=== PATIENT | male | born 1965 | race Caucasian/White ===

== ENCOUNTER 2019-11-13 18:12 | Emergency (ER) | payer OTHER, SELFPAY ==
[2019-11-13 18:31] VITALS: BP 140/84; PULSE 71; RESP 16; TEMP 36.7; O2SAT 99; BMI 24.4
[2019-11-13 18:43] VITALS: BP 142/94; PULSE 69; O2SAT 100
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
== END 2019-11-13 20:41 | disposition home or self-care (01) ==
PROVIDERS: Emergency Provider Emergency Medicine; Family Provider Family Medicine; PCP Family Medicine
DX: S20.211A Contusion of right front wall of thorax, initial encounter (principal); R07.89 Other chest pain; R06.00 Dyspnea, unspecified; V19.3XXA Pedal cyclist (driver) (passenger) injured in unspecified nontraffic accident, initial encounter
CPT/HCPCS: 36415; 71101; 99283; 99284

== ENCOUNTER → 2020-02-12 07:04 | Outpatient (CLI) | payer OTHER, SELFPAY ==
[2020-02-12 07:42] LABS: Add Manual Diff / Slide Review NO; Basophils Absolute Auto 0 /uL (0-100); Basophils Percent Auto 0.5 % (0-2); Eosinophils Absolute Auto 300 /uL (0-450); Eosinophils Percent Auto 5.4 % (2-4); Hematocrit 43.4 % (41-53); Hemoglobin 14.5 g/dL (13.5-17.5); Lymphocytes Absolute Auto 1500 /uL (1100-4500); Lymphocytes Percent Auto 31.2 % (25-40); Mean Corpuscular HGB Conc 33.3 % (30-36); Mean Corpuscular Hemoglobin 29.5 PG (26-34); Mean Corpuscular Volume 88.4 fL (80-100); Monocytes Absolute Auto 400 /uL (0-900); Monocytes Percent Auto 8.7 % (3-14); Neutrophils Absolute Auto 2600 /uL (1500-7000); Neutrophils Percent Auto 54.2 % (50-75); Platelet Count 209 X10^3/uL (150-400); Red Blood Cell Count 4.91 X10^6/uL (4.5-5.9); Red Cell Distribution Width 12.9 % (11.6-14.8); White Blood Cell Count 4.9 X10^3/uL (4.5-11.0)
[2020-02-12 08:06] LABS: Alanine Aminotransferase 22 IU/L (<50); Albumin 4.2 g/dL (3.5-5.0); Albumin Globulin Ratio 1.5 (1.0-2.8); Alkaline Phosphatase 46 U/L (38-126); Aspartate Aminotransferase 30 IU/L (17-59); BUN Creatinine Ratio 22.8 (6-22); Bilirubin Total 0.9 mg/dL (0.2-1.3); Blood Urea Nitrogen 21 mg/dL (9-20); Calcium 9.7 mg/dL (8.4-10.2); Carbon Dioxide 31 mmol/L (22-32); Chloride 103 mmol/L (98-107); Cholesterol 187 mg/dL (140-199); Estimated Glomerular Filt Rate > 60.0 mL/min (>60); Globulin 2.8 g/dL (1.7-4.1); Glucose 82 mg/dL (70-100); HDL Cholesterol 48 mg/dL (40-60); HEMOLYSIS 20 (0-50); LDL Cholesterol Calculated 123 mg/dL (<100); Potassium 4.6 mmol/L (3.4-5.1); Sodium 140 mmol/L (137-145); Triglycerides 81 mg/dL (35-150)
[2020-02-12 08:32] LABS: Prostate Specific Antigen Scrn 0.665 ng/mL (0.1-4.0)
== END ==
PROVIDERS: Family Provider Family Medicine; PCP Family Medicine; Referring Provider Family Medicine; Visit Provider Family Medicine
DX: Z00.00 Encounter for general adult medical examination without abnormal findings (principal); Z12.5 Encounter for screening for malignant neoplasm of prostate; Z13.220 Encounter for screening for lipoid disorders; Z13.6 Encounter for screening for cardiovascular disorders
CPT/HCPCS: 36415; 80053; 80061; 85025; G0103

== ENCOUNTER → 2020-07-05 09:03 | Outpatient (CLI) | payer OTHER, SELFPAY ==
[2020-07-05 10:01] LABS: COVID19 -Nasal RAPID Negative (Negative)
== END ==
PROVIDERS: Family Provider Family Medicine; PCP Family Medicine; Visit Provider Surgery
DX: Z20.822 Contact with and (suspected) exposure to COVID-19 (principal)
CPT/HCPCS: 87635; C9803

== ENCOUNTER 2020-07-08 08:56 | Day surgery (SDC) | payer OTHER, SELFPAY ==
[2020-07-08 09:33] VITALS: BP 131/81; PULSE 62; RESP 13; TEMP 36.2; O2SAT 100; BMI 25.0
[2020-07-08] MEDS: LACTATED RINGERS 1,000 ML 42 ML IV (09:40)
--- NOTE | 2020-07-08 10:18 | PM.HP.1 ---
History of Present Illness History of Present Illness Date Patient Seen: 07/08/20 Time Patient Seen: 10:18 Chief complaint: SCREENING COLONOSCOPY Narrative: The patient presents for colorectal sreening. They have never had any previous examination for such. No personal or family history of colon cancer. On further history denies any recent gastrointestinal symptoms. No nausea, vomiting, abdominal pain, loss of appetite, unexplained weight loss, change in bowel habits, diarrhea, constipation, melena, hematochezia, or bright red blood per rectum. Patient History Medical History Erectile dysfunction Preventative health care Right hip pain Wears glasses Family & Social History Family History Mother Age: 80 Hypertension Grandmother Cancer Hypertension Social History: household members significant other Tobacco & Substance use: Smoking Status Former smoker alcohol intake current alcohol intake frequency a few times a week Substance Use Type does not use Meds Home Medications and Allergies Home Medications Medication Instructions Recorded Confirmed Type epinephrine 0.3 mg/0.3 mL 0.3 mg IM Q5-15M PRN #2 ea 05/21/20 07/08/20 Rx injection, auto-injector sildenafil (pulm.hypertension) 20 mg PO PRN PRN 07/08/20 07/08/20 History Allergies Allergy/AdvReac Type Severity Reaction Status Date / Time tree nut [TREE NUT] Allergy Unknown Verified 05/21/20 16:36 Review of Systems Review of Systems Narrative: A 10 point review of systems is negative except as noted in the HPI Exam Vital Signs (past 8 hours): - 07/08/20 09:33 Temperature 97.2 F L Pulse Rate 62 Respiratory Rate 13 Blood Pressure 131/81 Pulse Oximetry 100 Oxygen Delivery Method Room Air Narrative Exam Narrative: General-no acute distress, well nourished adult man HEENT-moist mucous membranes, no scleral icterus Neck-supple, no lymphadenopathy Chest- non labored respirations, clear to auscultation bilaterally Cardiac-regular rate no peripheral edema Abdomen-soft, nontender, non distended Extremities-warm, well perfused Neurological-alert and oriented, no focal deficits Assessment & Plan Assessment & Plan narrative: The patient requires colorectal screening and colonoscopy is recommended. Technical details were discussed. Risks, benefits, alternatives explained. Risks including but not limited to myocardial infarction, aspiration, bleeding, pain, missed lesion, incomplete examination, need for further radiographic studies, colonic perforation, and need for major abdominal surgery were discussed. All questions were answered to their satisfaction, and they are in agreement with this plan.
[2020-07-08] MEDS: fentaNYL 250 MCG/5 ML INJ IV (10:35)
[2020-07-08] MEDS: MIDAZOLAM 5 MG/5 ML VIAL IV (10:35)
[2020-07-08 10:52] VITALS: BP 113/76; PULSE 64; RESP 12; TEMP 36.4; O2SAT 98
--- NOTE | 2020-07-08 10:52 | PM.OP.ENDO ---
Operative Date/Time/Diagnoses Date of procedure: 07/08/20 Time of procedure: 10:52 Pre-op diagnosis: screening colonoscopy Post-op diagnosis: same Procedure & Clinicians Study performed: Colonoscopy Same procedure as scheduled: Yes Indications: 55-year-old male no prior colonoscopy here for routine screening Surgeon: Arnol Ocasio Procedure Notes Procedure in detail: Medications: Conscious sedation using 6mg IV midazolam and 150mcg IV of fentanyl The history and physical was performed/updated and the patient is ASA class is 1. The procedure was discussed in detail with the patient. Potential risks complications including infection, bleeding, missed diagnosis, perforation, need for surgery, and were explained. Their questions were answered and informed consent was obtained. Patient was brought to the procedure room and placed standard monitoring equipment. The patient's vital signs were monitored continuously throughout the entire procedure. Prior to starting time-out was performed. The patient was placed in the left lateral recumbent position. Procedural sedation was administered. Examination began with a thorough inspection of the perianal area there was no evidence of fissures, fistulae, external hemorrhoids or cutaneous malignancy. The colonoscopy scope was then placed into the anal canal and was advanced to the cecum, which was identified by the ileocecal valve, the appendiceal orifice and the confluence of the taenia. The scope was then slowly withdrawn examining colon thoroughly in all directions, irrigating it of any residual stool. No masses or polyps Sigmoid diverticulosis The patient tolerated the procedure well. They will be discharged once criteria are met. The prep was of good/excellent quality. The withdrawl time was 7 minutes. The sedation time was 22 minutes. Specimen(s): none sent Complications: none Impression: Normal colonoscopy Post-procedure Recommendations: Colonscopy in 10 years
[2020-07-08 10:57] VITALS: BP 114/70; PULSE 62; RESP 9; O2SAT 99
[2020-07-08 11:02] VITALS: BP 123/85; PULSE 59; RESP 12; O2SAT 98
[2020-07-08 11:07] VITALS: BP 112/81; PULSE 57; RESP 9; O2SAT 99
[2020-07-08 11:09] VITALS: BP 121/88; PULSE 67; RESP 9; TEMP 36.6; O2SAT 98
== END 2020-07-08 11:20 | disposition home or self-care (01) ==
PROVIDERS: Family Provider Family Medicine; PCP Family Medicine; Referring Provider Surgery; Visit Provider Surgery
PROC: 0DJD8ZZ Inspection of Lower Intestinal Tract, Via Natural or Artificial Opening Endoscopic (ICD-10-PCS; CPT 45378; principal; 2020-07-08 10:00)
DX: Z12.11 Encounter for screening for malignant neoplasm of colon (principal); K57.30 Diverticulosis of large intestine without perforation or abscess without bleeding
CPT/HCPCS: 45378; 99152; J2250; J3010

== ENCOUNTER → 2021-08-21 12:11 | Outpatient (CLI) | payer OTHER, SELFPAY ==
--- NOTE | 2021-08-21 12:13 | DI.RAD.S_ITS ---
PROCEDURE: XR HIP W PEL IF DONE RT 2V INDICATIONS: right hip pain TECHNIQUE: AP pelvis with lateral view(s) of the right hip(s). COMPARISON: None. FINDINGS: Bones: No fractures or dislocations. Pelvic ring appears intact. No suspicious bony lesions. Moderate bilateral hip degenerative arthritis. Soft tissues: The visualized bowel gas pattern is normal. No suspicious soft tissue calcifications. IMPRESSION: Moderate bilateral hip degenerative arthritis. No evidence acute bony abnormality of the pelvis and right hip. If clinical suspicion and/or symptoms persist, further assessment with repeat plain films, or advanced imaging (e.g., CT, MRI, or bone scan) may be helpful for further assessment. Dictated by: Chandrakant Hennessy M.D. on 08/21/2021 at 16:51 Approved by: Chandrakant Hennessy M.D. on 08/21/2021 at 16:52
== END ==
PROVIDERS: Family Provider Family Medicine; PCP Family Medicine; Referring Provider Family Medicine; Visit Provider Family Medicine
DX: M25.551 Pain in right hip (principal); M16.0 Bilateral primary osteoarthritis of hip
CPT/HCPCS: 73502

== ENCOUNTER → 2021-09-18 07:21 | Outpatient (CLI) | payer OTHER, SELFPAY ==
--- NOTE | 2021-09-18 07:23 | DI.US.S_ITS ---
PROCEDURE: US SCROTUM INDICATIONS: SWOLLEN RIGHT SCROTUM TECHNIQUE: Real-time scanning was performed of the scrotum and testicles, with image documentation. Color and pulse Doppler interrogation was performed of both testicles. COMPARISON: None. FINDINGS: Right: Testicle is normal in size at 5.1 x 3.2 x 3.6 cm. There is an exophytic hyperechoic focus measuring roughly 3 mm at the superior aspect of the right testis. Epididymis is normal in overall size and morphology. Moderate hydrocele. No varicocele.. Overlying scrotal skin is normal in thickness. Left: Testicle is normal in size at 5.0 x 4.3 x 3.2 cm, and homogeneous in echotexture. Epididymis is normal in overall size . There is an 8 mm anechoic focus within the epididymal head, consistent with cyst. No hydrocele or varicoceles. Overlying scrotal skin is normal in thickness. Doppler: Color and pulse Doppler demonstrate normal and symmetric arterial flow in both testicles. IMPRESSION: 1. Right hydrocele. 2. Small hyperechoic exophytic focus adjacent to the superior aspect of the right testis, consistent with benign etiology, possibly post infectious or post inflammatory. Dictated by: Marky Salazar M.D. on 09/18/2021 at 15:54 Approved by: Marky Salazar M.D. on 09/18/2021 at 16:41
== END ==
PROVIDERS: Family Provider Family Medicine; PCP Family Medicine; Referring Provider Family Medicine; Visit Provider Family Medicine
DX: N50.89 Other specified disorders of the male genital organs (principal); N43.3 Hydrocele, unspecified
CPT/HCPCS: 76870

== ENCOUNTER → 2021-10-09 08:01 | Outpatient (CLI) | payer OTHER, SELFPAY ==
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
== END ==
PROVIDERS: Family Provider Family Medicine; PCP Family Medicine; Referring Provider Family Medicine; Visit Provider Family Medicine
DX: S83.512A Sprain of anterior cruciate ligament of left knee, initial encounter (principal); S83.232A Complex tear of medial meniscus, current injury, left knee, initial encounter; S83.282A Other tear of lateral meniscus, current injury, left knee, initial encounter; S83.412A Sprain of medial collateral ligament of left knee, initial encounter; S80.02XA Contusion of left knee, initial encounter; M25.462 Effusion, left knee; M71.22 Synovial cyst of popliteal space [Baker], left knee; M17.12 Unilateral primary osteoarthritis, left knee; X58.XXXA Exposure to other specified factors, initial encounter
CPT/HCPCS: 73721

== ENCOUNTER → 2022-01-27 15:36 | Outpatient (CLI) | payer OTHER, SELFPAY ==
[2022-01-27 19:06] LABS: COVID19 -Nasal RAPID Negative (Negative)
== END ==
PROVIDERS: Family Provider Family Medicine; PCP Family Medicine; Visit Provider Urology
DX: Z20.822 Contact with and (suspected) exposure to COVID-19 (principal)
CPT/HCPCS: 87635; C9803

== ENCOUNTER 2022-01-30 12:30 | Day surgery (SDC) | payer OTHER, SELFPAY ==
[2022-01-28 12:07] VITALS: BMI 24.9
--- NOTE | 2022-01-30 | PATH_ITS ---
[facility] Accession Number: [id number] . 01 Material submitted: . testis - RIGHT HYDROCELE SAC . 01 Diagnosis: Right Hydrocele, Excision: Mesothelial-lined fibrovascular tissue consistent with hydrocele. Negative for neoplasia. [facility] 02/05/2022 1419 Local . 01 Electronically signed: . Carina Infante MD, Pathologist NPI- [id number] . 01 Gross description: . The specimen is received in formalin labeled with the patient's name and right hydrocele sac, and consists of two mcelroy soft tissue fragments aggregating to 6.9 x 5.8 x 0.5 cm. One surface is brown and roughened consistent with cautery artifact. The opposite surface is mcelroy and smooth. Sectioning reveals a mcelroy, slightly gelatinous cut surface. Kiln Packer sections are submitted in cassettes A1-A2. ([id number]) /V 02/03/2022 1311 Local . 01 Pathologist provided ICD-10: N43.3 . 01 CPT . 644828 Performed at: [facility] [address] [place] [address] [id number] MD Baron Maya MD Phone: [phone]
[2022-01-30 12:50] VITALS: BP 133/89; PULSE 56; RESP 16; TEMP 36.4; O2SAT 100; BMI 24.4
--- NOTE | 2022-01-30 13:03 | PM.PREOP ---
Pre-operative Note COVID-19 COVID-19 status: Negative Result date/Date tested (Pos, Neg/Pending): 01/27/22 Criteria for continued procedure: Delay expected to result in less-positive ultimate med/surg outcome and Non-surgical alternatives not available or appropriate per current SOC Interval Note History & Physical reviewed/Exam performed by Physician: Yes Changes to H&P: No
[2022-01-30] MEDS: LACTATED RINGERS 1,000 ML 42 ML IV (13:14)
[2022-01-30] MEDS: CEFAZOLIN 2 GM/100 ML PREMIX 100 ML IV (13:48)
--- NOTE | 2022-01-30 13:51 | SUR.OPER ---
Supine on padded OR bed, head on pillow, arms secured on padded arm boards at <90 degrees abduction, legs uncrossed, safety belt at thigh, tape over blanket over lower legs.
[2022-01-30] MEDS: BUPIVACAINE 0.25% (PF) VIAL 30 ML INJ (14:02)
[2022-01-30 14:50] VITALS: BP 108/67; PULSE 90; RESP 16; TEMP 36.3; O2SAT 98
--- NOTE | 2022-01-30 14:50 | PM.OP.1 ---
Procedure & Clinicians Procedure: Right hydrocelectomy Same procedure as scheduled: Yes Indications: This is a very pleasant 56-year-old male who presented with a large uncomfortable right hydrocele this was confirmed by ultrasound and he presents this time for right hydrocelectomy. Surgeon: Paul Hebert Click Yes if Unassisted: Yes Anesthesia Type: General Operative Notes Findings: Normal anatomy save the hydrocele which had clear yellow fluid in it there were 2 small scrotal pearls and no other abnormalities noted. Closure Type: primary Specimen(s): other (Right hydrocele sac) Estimated Blood Loss (mL): 5 Blood products transfused: none Procedure in detail: Procedure in detail: After informed consent was obtained, the patient was identified and brought to the operating room where he is placed in a supine position on the table. Anesthesia was induced and maintained. And the patient was prepped, draped, prepared for trans scrotal procedure on the right side. After prepping, draping, ensuring an adequate level of anesthesia and time-out with the appropriate side verified by Juan Carlos, a transverse right hemiscrotal incision was made. This was carried down through the layers the dartos and the hydrocele and testicle and was delivered. The sac was opened anteriorly the fluid evacuated by suction. The incision extended in a vertical fashion. The excess sac was excised taking care to avoid the epididymis testes or cord structures. The sac was then forwarded to pathology in formalin for pathologic examination. Attention was then turned to running the edge of the excision with a running locking 2-0 chromic gut suture. Cord was then infiltrated with 0.25% plain Marcaine in the testes returned to the scrotum with hemostasis assured. The wound was irrigated the dartos was reapproximated with a running 2-0 Vicryl. Skin edges infiltrated with 0.25% Marcaine plain and the skin edges reapproximated with interrupted vertical mattress of 2-0 chromic. The wound was dressed with bacitracin Telfa fluffs and scrotal support the patient was awakened and taken the postanesthesia care unit having tolerated the procedure well, there were no complications. Complications: none Post-operative Condition: stable Disposition: PACU Plan for aftercare: Patient is to be discharged home to follow up my office in 10-14 days.
[2022-01-30 14:55] VITALS: BP 125/84; PULSE 88; RESP 16; O2SAT 100
[2022-01-30 15:00] VITALS: BP 125/84; PULSE 89; RESP 12; O2SAT 100
[2022-01-30 15:22] VITALS: BP 125/92; PULSE 72; RESP 16; TEMP 36.8; O2SAT 98
== END 2022-01-30 15:47 | disposition home or self-care (01) ==
PROVIDERS: Family Provider Family Medicine; PCP Family Medicine; Referring Provider Urology; Visit Provider Urology
PROC: (CPT 55040; principal; 2022-01-30 13:30)
DX: N43.3 Hydrocele, unspecified (principal); N52.9 Male erectile dysfunction, unspecified; N50.89 Other specified disorders of the male genital organs
CPT/HCPCS: 55040; 82962; J0690; J1100; J2250; J2405; J2704; J3010

== ENCOUNTER → 2022-02-22 09:38 | Outpatient (CLI) | payer OTHER, SELFPAY ==
--- NOTE | 2022-02-22 09:39 | DI.CT.S_ITS ---
PROCEDURE: CT CHEST WO CON INDICATIONS: F/U Rib fracture, continued pain TECHNIQUE: Noncontrast 5 mm thick sections acquired from the pulmonary apices to the posterior costophrenic angles. 1 mm lung window, 5 mm thick coronal and sagittal and 7 mm axial MIP reformats were then acquired. For radiation dose reduction, the following was used: automated exposure control, adjustment of mA and/or kV according to patient size. COMPARISON: None. FINDINGS: Image quality: Excellent. Lungs and pleura: No acute air space opacities. No pleural effusions or pneumothorax. Central and peripheral airways are patent and normal in caliber. Mediastinum: Heart size is normal. No pericardial effusion. No mediastinal adenopathy by size criteria. Thoracic aorta and central pulmonary arteries are normal in size. Esophagus is normal in caliber. No hiatal hernia. Bones and chest wall: In this patient with this given history, scrutiny is given to the previously seen left-sided rib fractures. The rib fractures each are seen to be healing, with bridging callus. No non fused rib fractures can be seen. No suspicious bony lesions. No vertebral body compression fractures. No axillary or supraclavicular adenopathy by size criteria. Thyroid gland demonstrates no significant noncontrast abnormality. Abdomen: Visualized upper abdominal solid organs and bowel loops appear normal in the absence of contrast. IMPRESSION: Expected healing of left-sided rib fractures can be seen, with bridging callus formation. The previously seen tiny left-sided pneumothorax has resolved. Dictated by: López De Paz M.D. on 02/22/2022 at 9:17 Approved by: López De Paz M.D. on 02/22/2022 at 9:20
== END ==
PROVIDERS: Family Provider Family Medicine; PCP Family Medicine; Referring Provider Family Medicine; Visit Provider Family Medicine
DX: S22.42XA Multiple fractures of ribs, left side, initial encounter for closed fracture (principal); R07.81 Pleurodynia; X58.XXXA Exposure to other specified factors, initial encounter
CPT/HCPCS: 71250

== ENCOUNTER → 2024-06-06 16:18 | Outpatient (CLI) | payer OTHER, SELFPAY ==
--- NOTE | 2024-06-06 16:19 | DI.RAD.S_ITS ---
PROCEDURE: XR FOOT RT MIN 3V INDICATIONS: eval bilateral feet TECHNIQUE: 3 views of the foot were acquired. COMPARISON: [facility], CR, XR FOOT LT MIN 3V, 06/06/2024, 16:18. FINDINGS: Bones: No fractures or dislocations. No suspicious bony lesions. Moderate 1st MTP degenerative narrowing with small periarticular osteophytes. Soft tissues: No tibiotalar joint effusion. Achilles tendon appears normal. IMPRESSION: Early degenerative changes most notable at the 1st MTP joint. Dictated by: Sheila Romero M.D. on 06/07/2024 at 21:11 Approved by: Sheila Romero M.D. on 06/07/2024 at 21:13
--- NOTE | 2024-06-06 16:19 | DI.RAD.S_ITS ---
PROCEDURE: XR FOOT LT MIN 3V INDICATIONS: eval bilateral feet TECHNIQUE: 3 views of the foot were acquired. COMPARISON: [facility], CR, XR FOOT RT MIN 3V, 06/06/2024, 16:18. FINDINGS: Bones: No fractures or dislocations. No suspicious bony lesions. [id number] 1st MTP degenerative narrowing. No erosions. No distinct osteophytes. Soft tissues: No tibiotalar joint effusion. Achilles tendon appears normal. IMPRESSION: Early degenerative changes notable at the 1st MTP joint. Dictated by: Sheila Romero M.D. on 06/07/2024 at 21:13 Approved by: Sheila Romero M.D. on 06/07/2024 at 21:13
== END ==
PROVIDERS: Family Provider Family Medicine; PCP Family Medicine; Referring Provider Family Medicine; Visit Provider Family Medicine
DX: M20.10 Hallux valgus (acquired), unspecified foot (principal); M19.072 Primary osteoarthritis, left ankle and foot; M19.071 Primary osteoarthritis, right ankle and foot
CPT/HCPCS: 73630

== ENCOUNTER → 2024-06-12 07:02 | Outpatient (CLI) | payer OTHER, SELFPAY ==
[2024-06-12 07:43] LABS: Add Manual Diff / Slide Review NO; Basophils Absolute Auto 0 /uL (0-100); Basophils Percent Auto 0.6 % (0-2); Eosinophils Absolute Auto 400 /uL (0-450); Hematocrit 45.1 % (41-53); Hemoglobin 15.3 g/dL (13.5-17.5); Lymphocytes Absolute Auto 1300 /uL (1100-4500); Lymphocytes Percent Auto 23.1 % (25-40); Mean Corpuscular Hemoglobin 30.3 PG (26-34); Mean Corpuscular Volume 89.1 fL (80-100); Monocytes Absolute Auto 500 /uL (0-900); Monocytes Percent Auto 8.8 % (3-14); Neutrophils Absolute Auto 3200 /uL (1500-7000); Neutrophils Percent Auto 59.5 % (50-75); Platelet Count 239 X10^3/uL (150-400); Red Blood Cell Count 5.06 X10^6/uL (4.5-5.9); Red Cell Distribution Width 13.7 % (11.6-14.8); White Blood Cell Count 5.4 X10^3/uL (4.5-11.0)
[2024-06-12 08:05] LABS: Alanine Aminotransferase 22 IU/L (<50); Albumin 4.5 g/dL (3.5-5.0); Albumin Globulin Ratio 1.7 (1.0-2.8); Alkaline Phosphatase 55 U/L (38-126); Aspartate Aminotransferase 28 IU/L (17-59); BUN Creatinine Ratio 23.1 (6-22); Bilirubin Total 0.6 mg/dL (0.2-1.3); Blood Urea Nitrogen 27 mg/dL (9-20); Calcium 9.9 mg/dL (8.4-10.2); Carbon Dioxide 29 mmol/L (22-32); Chloride 105 mmol/L (98-107); Cholesterol 225 mg/dL (140-199); Estimated Glomerular Filt Rate > 60 mL/min (>60); Globulin 2.6 g/dL (1.7-4.1); Glucose 94 mg/dL (70-100); HDL Cholesterol 53 mg/dL (40-60); HEMOLYSIS < 15 (0-50); LDL Cholesterol Calculated 158 mg/dL (<100); Potassium 4.6 mmol/L (3.4-5.1); Sodium 140 mmol/L (137-145); Total Protein 7.1 g/dL (6.3-8.2); Triglycerides 71 mg/dL (35-150)
[2024-06-12 08:35] LABS: Prostate Specific Antigen 1.06 ng/mL (0.10-4.00)
== END ==
PROVIDERS: Family Provider Family Medicine; PCP Family Medicine; Referring Provider Family Medicine; Visit Provider Family Medicine
DX: Z00.00 Encounter for general adult medical examination without abnormal findings (principal); E78.2 Mixed hyperlipidemia
CPT/HCPCS: 36415; 80053; 80061; 84153; 85025

== ENCOUNTER → 2024-08-08 06:51 | Outpatient (CLI) | payer OTHER, SELFPAY ==
--- NOTE | 2019-08-09 07:16 | DI.ECHO.S_ITS ---
:Name: YAYO VELASCO Study Date: 08/08/2024 Height: 73 in : :[facility] ReadingLocation: Weight: 185 lb : : Gender: Male BSA: 2.1 m2 : :: 1965 Age: 59 yrs BP: 132/86 mmHg: :Reason For Study: EVALUATE BORDERLINE WIDE ASCENDING AORTA : :Ordering Physician: SHAHLA, : :NADEEM Murdock Performed By: Jamee Mejia : :Referring: NADEEM GALE D.O. : + + Interpretation Summary The left ventricle is normal in size and wall thickness. The left ventricular ejection fraction is normal. The ejection fraction is estimated to be 60-65%. The right ventricle is at the upper limits of normal in size. The right ventricular systolic function is normal. There is borderline mitral valve prolapse. There is prolapse of the posterior mitral valve leaflet(s). There is mild mitral regurgitation. The ascending aorta is at the upper limits of normal in size 3.8 cm in diameter with.BSA: 2.1 m2. The IVC is of normal diameter and collapses greater than 50% with a sniff. This suggests a low right atrial pressure of 3 mm Hg. Procedure: A two-dimensional transthoracic echocardiogram with color flow and Doppler was performed. The study quality was technically adequate. There is no prior echocardiogram noted for this patient. The patient was in sinus rhythm with heart rates between 62-82 bpm during the exam. Left Ventricle: The left ventricle is normal in size and wall thickness. There is no thrombus. A false chord is noted (normal variant). The ejection fraction is estimated to be 60-65%. The left ventricular ejection fraction is normal. There are no focal wall motion abnormalities. Diastolic parameters suggest probable normal left ventricular diastolic function and normal filling pressures. Right Ventricle: The right ventricle is at the upper limits of normal in size. The right ventricular systolic function is normal. Atria: The left atrial size is normal. Right atrial size is normal. A prominent eustachian valve is noted. There is no Doppler evidence for an interatrial shunt. Mitral Valve: The mitral valve leaflets appear mildly thickened, but open well. There is a flat closure plane of the the mitral valve leaflets. There is borderline mitral valve prolapse. There is prolapse of the posterior mitral valve leaflet(s). There is mild mitral regurgitation. Aortic Valve: The aortic valve is trileaflet. The aortic valve opens well. There is no aortic valve stenosis. There is trace aortic regurgitation. Tricuspid Valve: The tricuspid valve leaflets are thin and pliable. Pulmonary artery pressures cannot be estimated because of the lack of a measurable TR jet velocity. There is trace tricuspid regurgitation. Pulmonic Valve: The pulmonic valve leaflets are thin and pliable; valve motion is normal. There is a trace or physiologic amount of pulmonic regurgitation. Great Vessels: The aortic root is normal size. The ascending aorta is at the upper limits of normal in size. The IVC is of normal diameter and collapses greater than 50% with a sniff. This suggests a low right atrial pressure of 3 mm Hg. Pericardium/ Pleura There is no pericardial effusion. There is no pleural effusion. MMode/2D Measurements & Calculations LVIDd: 5.0 cm LVOT diam: 2.3 cm LVIDs: 3.2 cm Ao root diam: 3.7 cm FS: 35.1 % asc Aorta Diam: 3.8 cm IVSd: 0.79 cm Ao Arch Diam (Prox Trans): 3.3 cm LVPWd: 0.74 cm LV groves. diameter/BSA (cm/m^2): 2.4 LV sys. diameter/BSA (cm/m^2): 1.5 LA A2 area: 20.4 cm2 RA long axis: 5.2 cm LA A4 area: 17.4 cm2 RA area: 18.8 cm2 LA length (vol): 5.1 cm RA vol: 58.3 ml LA vol: 59.6 ml RA : 28.0 ml/m2 LA vol index: 28.6 ml/m2 IVC diam: 2.1 cm RVD1 (basal): 4.1 cm TAPSE: 2.9 cm Doppler Measurements & Calculations Ao V2 max: 132.4 cm/sec LVOT Max Ector: 112.8 cm/sec Ao V2 mean: 91.4 cm/sec LV V1 max P.1 mmHg Ao max P.0 mmHg LV V1 VTI: 24.1 cm Ao mean P.8 mmHg ALEKSANDR(I,D): 3.7 cm2 Ao V2 VTI: 26.1 cm ALEKSANDR(V,D): 3.4 cm2 sev ratio: 0.92 ALEKSANDR indexed to BSA (cm^2/m^2): 1.8 MV E max ector: 63.3 cm/sec PA V2 max: 105.4 cm/sec MV A max ector: 49.7 cm/sec PA V2 mean: 67.2 cm/sec MV E/A: 1.3 PA mean P.2 mmHg Med Peak E' Ector: 10.0 cm/sec PA pr(Accel): 22.5 mmHg E/E' med: 6.4 Lat Peak E' Ector: 10.5 cm/sec E/E' lat: 6.0 E/e' average: 6.2 MV dec time: 0.18 sec SV(LVOT): 96.6 ml Reading Physician:10:05 AM
--- NOTE | 2024-08-08 07:16 | DI.MG.S_ITS ---
[facility] +---------+ [facility] : : [id number] : [place] [address] : : [id number] : : Phone: [phone] Echocardiogram Report + + :Name: YAYO VELASCO Study Date: 08/08/2024 Height: 73 in : :Hospital ReadingLocation: Weight: 185 lb : : Gender: Male BSA: 2.1 m2 : :: 1965 Age: 59 yrs BP: 132/86 mmHg: :Reason For Study: EVALUATE BORDERLINE WIDE ASCENDING AORTA : :Ordering Physician: SHAHLA, : :NADEEM Murdock Performed By: Jamee Mejia : :Referring: NADEEM GALE D.O. : + + Interpretation Summary The left ventricle is normal in size and wall thickness. The left ventricular ejection fraction is normal. The ejection fraction is estimated to be 60-65%. The right ventricle is at the upper limits of normal in size. The right ventricular systolic function is normal. There is borderline mitral valve prolapse. There is prolapse of the posterior mitral valve leaflet(s). There is mild mitral regurgitation. The ascending aorta is at the upper limits of normal in size 3.8 cm in diameter with.BSA: 2.1 m2. The IVC is of normal diameter and collapses greater than 50% with a sniff. This suggests a low right atrial pressure of 3 mm Hg. Procedure: A two-dimensional transthoracic echocardiogram with color flow and Doppler was performed. The study quality was technically adequate. There is no prior echocardiogram noted for this patient. The patient was in sinus rhythm with heart rates between 62-82 bpm during the exam. Left Ventricle: The left ventricle is normal in size and wall thickness. There is no thrombus. A false chord is noted (normal variant). The ejection fraction is estimated to be 60-65%. The left ventricular ejection fraction is normal. There are no focal wall motion abnormalities. Diastolic parameters suggest probable normal left ventricular diastolic function and normal filling pressures. Right Ventricle: The right ventricle is at the upper limits of normal in size. The right ventricular systolic function is normal. Atria: The left atrial size is normal. Right atrial size is normal. A prominent eustachian valve is noted. There is no Doppler evidence for an interatrial shunt. Mitral Valve: The mitral valve leaflets appear mildly thickened, but open well. There is a flat closure plane of the the mitral valve leaflets. There is borderline mitral valve prolapse. There is prolapse of the posterior mitral valve leaflet(s). There is mild mitral regurgitation. Aortic Valve: The aortic valve is trileaflet. The aortic valve opens well. There is no aortic valve stenosis. There is trace aortic regurgitation. Tricuspid Valve: The tricuspid valve leaflets are thin and pliable. Pulmonary artery pressures cannot be estimated because of the lack of a measurable TR jet velocity. There is trace tricuspid regurgitation. Pulmonic Valve: The pulmonic valve leaflets are thin and pliable; valve motion is normal. There is a trace or physiologic amount of pulmonic regurgitation. Great Vessels: The aortic root is normal size. The ascending aorta is at the upper limits of normal in size. The IVC is of normal diameter and collapses greater than 50% with a sniff. This suggests a low right atrial pressure of 3 mm Hg. Pericardium/ Pleura There is no pericardial effusion. There is no pleural effusion. MMode/2D Measurements & Calculations LVIDd: 5.0 cm LVOT diam: 2.3 cm LVIDs: 3.2 cm Ao root diam: 3.7 cm FS: 35.1 % asc Aorta Diam: 3.8 cm IVSd: 0.79 cm Ao Arch Diam (Prox Trans): 3.3 cm LVPWd: 0.74 cm LV groves. diameter/BSA (cm/m^2): 2.4 LV sys. diameter/BSA (cm/m^2): 1.5 LA A2 area: 20.4 cm2 RA long axis: 5.2 cm LA A4 area: 17.4 cm2 RA area: 18.8 cm2 LA length (vol): 5.1 cm RA vol: 58.3 ml LA vol: 59.6 ml RA : 28.0 ml/m2 LA vol index: 28.6 ml/m2 IVC diam: 2.1 cm RVD1 (basal): 4.1 cm TAPSE: 2.9 cm Doppler Measurements & Calculations Ao V2 max: 132.4 cm/sec LVOT Max Ector: 112.8 cm/sec Ao V2 mean: 91.4 cm/sec LV V1 max P.1 mmHg Ao max P.0 mmHg LV V1 VTI: 24.1 cm Ao mean P.8 mmHg ALEKSANDR(I,D): 3.7 cm2 Ao V2 VTI: 26.1 cm ALEKSANDR(V,D): 3.4 cm2 sev ratio: 0.92 ALEKSANDR indexed to BSA (cm^2/m^2): 1.8 MV E max ector: 63.3 cm/sec PA V2 max: 105.4 cm/sec MV A max ector: 49.7 cm/sec PA V2 mean: 67.2 cm/sec MV E/A: 1.3 PA mean P.2 mmHg Med Peak E' Ector: 10.0 cm/sec PA pr(Accel): 22.5 mmHg E/E' med: 6.4 Lat Peak E' Ector: 10.5 cm/sec E/E' lat: 6.0 E/e' average: 6.2 MV dec time: 0.18 sec SV(LVOT): 96.6 ml Reading Physician:10:05 AM
== END ==
PROVIDERS: Family Provider Family Medicine; PCP Family Medicine; Referring Provider Family Medicine; Visit Provider Family Medicine
DX: Q25.40 Congenital malformation of aorta unspecified (principal); I34.0 Nonrheumatic mitral (valve) insufficiency; I34.1 Nonrheumatic mitral (valve) prolapse
CPT/HCPCS: 93306